=== PATIENT | female | born 1980 | race Caucasian/White ===

== ENCOUNTER 2018-10-01 14:15 | Emergency (ER) | payer MEDICARE, OTHER ==
[~2018-10-01] VITALS: Ht 162.6 cm; Wt 59.0 kg
[~2018-10-01 14:15] MED LIST: ACET325 PO; ALBU90OI INH; AMOCLA875 PO; AMOX500 PO; BENZ100A PO; CEPH500 PO; CLIN150 PO; CODGUAEL PO; Cipro500 MG PO; DICL250; DOXY100 PO; Flagyl250 MG PO; HYDACE5 PO; HYDGUAL120 PO; IBUP200 PO; IBUP800; IBUP800 PO; MULVITMINE; Monodox100 MG PO; NAPR500 PO; NEOPOLHYDS OT; OXYACE5T PO; OXYACE7.5T PO; PENVK250 PO; PENVK500 PO; Prednisone20 MG PO; RXALBOI INH; RXHYDACE PO; RXOXYACE PO; RXPENVK250 PO; SPACER IH; SULTRIDS PO; TRAM50 PO; Ventolin/Prove6.7 GM
[2018-12-19] MEDS ORDERED: Macrobid 100 M100 MG PO (15:53)
[2018-12-19] MEDS ORDERED: Pyridium100 MG PO (15:53)
== END 2018-10-01 14:29 | disposition home or self-care (01) ==
LOC: ER 14:15
DX: N89.8 Other specified noninflammatory disorders of vagina (principal); J44.9 Chronic obstructive pulmonary disease, unspecified; Z86.718 Personal history of other venous thrombosis and embolism; Z88.2 Allergy status to sulfonamides; Z88.1 Allergy status to other antibiotic agents; Z88.8 Allergy status to other drugs, medicaments and biological substances; F17.200 Nicotine dependence, unspecified, uncomplicated
CPT/HCPCS: 99283; A9270-GY

== ENCOUNTER 2018-10-22 02:13 | Emergency (ER) | payer MEDICARE, OTHER ==
[~2018-10-22] VITALS: Ht 162.6 cm; Wt 77.1 kg
[2018-12-19] MEDS ORDERED: Pyridium100 MG PO (15:53)
[2018-12-19] MEDS ORDERED: Macrobid 100 M100 MG PO (15:53)
== END 2018-10-22 05:12 | disposition home or self-care (01) ==
LOC: ER 02:13
DX: A59.9 Trichomoniasis, unspecified (principal); F17.210 Nicotine dependence, cigarettes, uncomplicated; Z88.1 Allergy status to other antibiotic agents; J45.909 Unspecified asthma, uncomplicated
CPT/HCPCS: 99282; A9270-GY

== ENCOUNTER 2019-01-28 17:27 | Inpatient (IN) | payer OTHER ==
[~2019-01-28] VITALS: Ht 160 cm; Wt 59.6 kg
[~2019-01-28 17:27] MED LIST changes: +Macrobid 100 M100 MG PO; +Pyridium100 MG PO
[2019-01-28 18:19] LABS: BASOPHILS ABSOLUTE AUTO 0.03 K/mm3 (0.00-0.23); BASOPHILS PERCENT AUTO 0 % (0-2); EOSINOPHILS ABSOLUTE AUTO 0.56 K/mm3 (0.00-0.68); EOSINOPHILS PERCENT AUTO 5 % (0-6); Hemoglobin 13.5 g/dL (11.5-16.0); IMMATURE GRAN ABSOLUTE AUTO 0.02 K/mm3 (0.00-0.10); IMMATURE GRAN PERCENT AUTO 0 % (0-1); LYMPHOCYTES ABSOLUTE AUTO 4.89 K/mm3 (0.84-5.20); LYMPHOCYTES PERCENT AUTO 41 % (21-46); MONOCYTES ABSOLUTE AUTO 0.99 K/mm3 (0.16-1.47); MONOCYTES PERCENT AUTO 8 % (4-13); Mean Corpuscular HGB 29.1 pg (26.0-34.0); Mean Corpuscular HGB Conc 32.9 g/dL (31.5-36.5); Mean Corpuscular Volume 88 fL (80-100); Mean Platelet Volume 9.4 fL (9.1-12.4); NEUTROPHILS ABSOLUTE AUTO 5.56 K/mm3 (1.96-9.15); NEUTROPHILS PERCENT AUTO 46 % (41-73); Platelet Count 265 K/mm3 (150-400); RDW Standard Deviation 39.2 fL (35.1-46.3); Red Blood Cell Count 4.64 M/mm3 (3.80-5.20); White Blood Cell Count 12.05 K/mm3 (4.00-11.30)
[2019-01-28 18:26] LABS: Base Excess Venous 1.8 mmol/L; Bicarbonate Venous 25.8 mmol/L (24.0-30.0); PCO2 Venous 41.6 mmHg (38-42); PO2 Venous 98.6 mmHg (38-42); pH Blood Venous 7.41 (7.34-7.37)
[2019-01-28 18:38] LABS: Alanine Aminotransfer (ALT/SGP 31 U/L (12-78); Albumin, Blood 3.4 g/dL (3.4-5.0); Albumin/Globulin Ratio 0.7 (0.8-1.8); Alk Phos 89 U/L (50-136); Anion Gap 7 mmol/L (6-16); Aspartate Aminotrans (AST/SGOT 28 U/L (12-37); Bilirubin, Total 0.3 mg/dL (0.1-1.0); Blood Urea Nitrogen 10 mg/dL (8-24); CO2, Blood 27 mmol/L (21-32); Calcium, Blood 8.7 mg/dL (8.5-10.1); Chloride, Blood 105 mmol/L (98-108); Creatinine, Blood 0.67 mg/dL (0.40-1.00); Globulin, Blood 4.6 g/dL (2.2-4.0); Glomerular Filtration Rate >60 (60-); Glucose, Blood 108 mg/dL (70-99); Sodium, Blood 139 mmol/L (136-145)
--- NOTE | 2019-01-28 20:22 | NUR ---
transfer report from Bj ARAYA on 38 year old PT being admitted with COPD, hypoxia. Full code status on oxygen and IV steroids. Await admission
[2019-01-28] MEDS ORDERED: WIXELA 250-501 EACH INH (20:30)
[2019-01-28] MEDS ORDERED: METH40 PO (21:26)
[2019-01-29 00:11] LABS: Adenovirus Not Detected (NOT DETECT); Bordetella pertussis Not Detected (NOT DETECT); Chlamydophila pneumoniae Not Detected (NOT DETECT); Coronavirus 229E Not Detected (NOT DETECT); Coronavirus HKU1 Not Detected (NOT DETECT); Coronavirus NL63 Not Detected (NOT DETECT); Coronavirus OC43 Not Detected (NOT DETECT); Human Metapneumovirus Not Detected (NOT DETECT); Human Rhinovirus/Enterovirus Detected (NOT DETECT); Influenza A Not Detected (NOT DETECT); Influenza A/2009-H1 Not Detected (NOT DETECT); Influenza A/H1 Not Detected (NOT DETECT); Influenza A/H3 Not Detected (NOT DETECT); Influenza B Not Detected (NOT DETECT); Mycoplasma pneumoniae Not Detected (NOT DETECT); Parainfluenza Virus 1 Not Detected (NOT DETECT); Parainfluenza Virus 2 Not Detected (NOT DETECT); Parainfluenza Virus 3 Not Detected (NOT DETECT); Parainfluenza Virus 4 Not Detected (NOT DETECT); Respiratory Syncytial Virus Not Detected (NOT DETECT)
[2019-01-29 05:07] LABS: Hematocrit 37.7 % (33.0-51.0); Hemoglobin 12.5 g/dL (11.5-16.0); Mean Corpuscular HGB 29.3 pg (26.0-34.0); Mean Corpuscular HGB Conc 33.2 g/dL (31.5-36.5); Mean Corpuscular Volume 89 fL (80-100); Mean Platelet Volume 9.7 fL (9.1-12.4); Platelet Count 247 K/mm3 (150-400); RDW Coefficient Variation 12.1 % (11.7-14.2); RDW Standard Deviation 39.4 fL (35.1-46.3); Red Blood Cell Count 4.26 M/mm3 (3.80-5.20); White Blood Cell Count 7.05 K/mm3 (4.00-11.30)
[2019-01-29 05:32] LABS: Alanine Aminotransfer (ALT/SGP 31 U/L (12-78); Albumin, Blood 3.2 g/dL (3.4-5.0); Albumin/Globulin Ratio 0.7 (0.8-1.8); Alk Phos 90 U/L (50-136); Anion Gap 7 mmol/L (6-16); Aspartate Aminotrans (AST/SGOT 20 U/L (12-37); Bilirubin, Total 0.3 mg/dL (0.1-1.0); Blood Urea Nitrogen 10 mg/dL (8-24); Bun/Creatinine Ratio 19.8 (12.0-20.0); CO2, Blood 25 mmol/L (21-32); Calcium, Blood 8.6 mg/dL (8.5-10.1); Chloride, Blood 108 mmol/L (98-108); Creatinine, Blood 0.51 mg/dL (0.40-1.00); Globulin, Blood 4.4 g/dL (2.2-4.0); Glomerular Filtration Rate >60 (60-); Glucose, Blood 226 mg/dL (70-99); Sodium, Blood 140 mmol/L (136-145); Total Protein, Blood 7.6 g/dL (6.4-8.2)
--- NOTE | 2019-01-29 06:10 | NUR ---
PT with COPD smoker admitted with hypoxia and resp distress. Positve resp panel for rhino/enterovirus. Room air sat 84 to 88% when PT removed oxygen. 91 to 93 % on 3 l . PT weepy this AM after rt wrist IV used for steroid. DC rt wristIV due to pain. PT has RT AC IV. 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
--- NOTE | 2019-01-29 18:14 | NUR ---
SPOKE TO DR RICE- PT HAS ASKED SEVERAL TIMES IF SHE WILL GET TO GO HOME TOMORROW. PT NOW AMBULATING W/O O2 OUTSIDE TO SMOKE. DC'D NICOTIENE PATCH. O2 SATS DROPPED INTO THE MID 80'S WHEN PT FELL ASLEEP. PLACED ON 2L O2 VIA NC MAINTAINING SATS IN THE LOW 90'S WHILE SLEEPING. RECIEVED ORDER FOR NIGHT TIME OXIMETRY TO DETERMINE PT HOME O2 NEEDS, IF ANY.
--- NOTE | 2019-01-29 18:39 | NUR ---
SHIFT SUMMARY- PT HAS NIGHT OX ORDERED FOR TONIGHT TO DETERMINE HOME O2 NEEDS. PT SEEMS LIKE SHE WILL BE WANTING TO GO HOME [place]. PT HAS BECOME MORE STABLE T/O THE DAY. SEE PREVIOUS NOTES FOR DETAILS.
--- NOTE | 2019-01-30 06:25 | NUR ---
DR Khoury updated on PT's request for Methadone 60 mg as per her clinic dose after recently completing rehab. declined to order day MD to address. PT completed sleep study, continues on IV steroids. PT continues to smoke intermittantly. No hypoxia noted even after ambulation outside to smoke.
--- NOTE | 2019-01-30 19:16 | NUR ---
PATIENT A/OX4, UP INDEPENDENTLY IN ROOM. VSS, ON RA. LUNGS COARSE WITH WHEEZES THROUGHOUT. GOES OUT TO SMOKE. PATIENT IS HOMELESS, WORKING WITH OUR STAFF TO FIND HOUSING. DENIES ANY PAIN. TAKES METHADONE DAILY. CALM AND COOPERATIVE WITH CARE, CALLS APPROPRIATELY FOR ASSISTANCE.
--- NOTE | 2019-01-31 04:17 | NUR ---
Patient slept intermittently through the night. No c/o pain or SOB. she continues to have a congested cough and is recieving nebulizer treatments per RT.
[2019-01-31] MEDS ORDERED: Prednisone20 MG PO (11:06)
[2019-01-31] MEDS ORDERED: METH10 PO (11:06)
--- NOTE | 2019-01-31 15:40 | NUR ---
DISCHARGE DISCHARGE MEDICATIONS AND INSTRUCTIONS EXPLAINED TO PATIENT. PATIENT STATED UNDERSTANDING. FOLLOW UP WITH PCP SCHEDULED. IV REMOVED WITHOUT DIFFICULTY. BELONGINGS WITH PATIENT. PATIENT AMBULATED TO PRIVATE VEHICLE.
== END 2019-01-31 15:15 | disposition home or self-care (01) | DRG 189 ==
LOC: ER 17:27 → MEDS 19:14 → ENPENDDIS 01-31 11:12 → MEDS 01-31 15:15
PROVIDERS: Emergency Medicine; Physician Assistant; ADMIT Internal Medicine
DX: J96.01 Acute respiratory failure with hypoxia (principal); J45.901 Unspecified asthma with (acute) exacerbation; F17.210 Nicotine dependence, cigarettes, uncomplicated; F11.10 Opioid abuse, uncomplicated; Z59.0 Homelessness; Z86.718 Personal history of other venous thrombosis and embolism
CPT/HCPCS: 0099U; 36415; 71046; 80053; 82803; 85025; 85027; 87070; 87081; 87205; 94640; 94664; 94760; 94762; 96365; 96366; 96375; 99285-25; A9270; J0456; J1650; J2930; J3475; J7030; J7050; J7512

== ENCOUNTER 2019-03-07 13:23 | Emergency (ER) | payer OTHER ==
[~2019-03-07] VITALS: Ht 162.6 cm; Wt 57.6 kg
[~2019-03-07 13:23] MED LIST changes: +METH10 PO; +METH40 PO; +WIXELA 250-501 EACH INH
[2019-03-07 17:34] LABS: Candida species (DNA Probe) Negative (NEGATIVE); G. vaginalis (DNA Probe) Positive (NEGATIVE); T. vaginalis (DNA Probe) Negative (NEGATIVE)
[2019-03-07] MEDS ORDERED: Flagyl500 MG PO (18:08)
== END 2019-03-07 18:11 | disposition home or self-care (01) ==
LOC: ER 13:23
PROVIDERS: Physician Assistant
DX: N76.0 Acute vaginitis (principal); J44.9 Chronic obstructive pulmonary disease, unspecified; F17.200 Nicotine dependence, unspecified, uncomplicated; Z79.899 Other long term (current) drug therapy
CPT/HCPCS: 87480; 87510; 87660; 99283

== ENCOUNTER 2019-05-01 10:57 | Emergency (ER) | payer OTHER ==
[~2019-05-01] VITALS: Ht 162.6 cm; Wt 63.5 kg
[~2019-05-01 10:57] MED LIST changes: +Flagyl500 MG PO
[2019-05-01] MEDS ORDERED: Vibramycin100 MG PO (11:35)
[2019-05-01] MEDS ORDERED: ALBU90OI INH (11:35)
[2019-05-01] MEDS ORDERED: Prednisone20 MG PO (11:35)
== END 2019-05-01 12:56 | disposition home or self-care (01) ==
LOC: ER 10:57
DX: J45.909 Unspecified asthma, uncomplicated (principal); F17.200 Nicotine dependence, unspecified, uncomplicated
CPT/HCPCS: 93005; 93010; 94640; 94644; 99283-25; J7512

== ENCOUNTER 2019-07-09 20:38 | Emergency (ER) | payer OTHER ==
[~2019-07-09] VITALS: Ht 162.6 cm; Wt 63.5 kg
[~2019-07-09 20:38] MED LIST changes: +Vibramycin100 MG PO
[2019-07-09] MEDS ORDERED: CLIN300 PO (23:00)
== END 2019-07-09 23:13 | disposition home or self-care (01) ==
LOC: ER 20:38
DX: K04.7 Periapical abscess without sinus (principal); K02.9 Dental caries, unspecified; J44.9 Chronic obstructive pulmonary disease, unspecified; F17.200 Nicotine dependence, unspecified, uncomplicated; Z79.899 Other long term (current) drug therapy
CPT/HCPCS: 99282; A9270

== ENCOUNTER 2019-08-12 23:47 | Emergency (ER) | payer OTHER ==
[~2019-08-12] VITALS: Ht 162.6 cm; Wt 63.5 kg
[~2019-08-12 23:47] MED LIST changes: +CLIN300 PO
[2019-08-13] MEDS ORDERED: PRED20 PO (01:43)
[2019-08-13] MEDS ORDERED: DOXY100 PO (01:43)
== END 2019-08-13 02:16 | disposition home or self-care (01) ==
LOC: ER 23:47
DX: J44.1 Chronic obstructive pulmonary disease with (acute) exacerbation (principal); F17.200 Nicotine dependence, unspecified, uncomplicated; Z79.899 Other long term (current) drug therapy
CPT/HCPCS: 71046; 94644; 99284-25; J1100

== ENCOUNTER 2020-01-05 07:29 | Emergency (ER) | payer OTHER ==
[~2020-01-05] VITALS: Ht 162.6 cm; Wt 63.5 kg
[~2020-01-05 07:29] MED LIST changes: +PRED20 PO; +Ultram50 MG PO; +Veetids 500500 MG PO
[2020-01-05] MEDS ORDERED: ACYC200 (07:41)
[2020-01-05] MEDS ORDERED: Prednisone20 MG PO (08:46)
== END 2020-01-05 09:00 | disposition home or self-care (01) ==
LOC: ER 07:29
DX: J44.1 Chronic obstructive pulmonary disease with (acute) exacerbation (principal); J45.901 Unspecified asthma with (acute) exacerbation; F17.200 Nicotine dependence, unspecified, uncomplicated; Z79.899 Other long term (current) drug therapy
CPT/HCPCS: 71045; 93005; 93010; 99285-25

== ENCOUNTER 2020-01-15 21:56 | Inpatient (IN) | payer OTHER ==
[~2020-01-15] VITALS: Ht 160 cm; Wt 65.3 kg
[~2020-01-15 21:56] MED LIST changes: +ACYC200 PO
[2020-01-15] MEDS ORDERED: METH5 PO (22:55)
[2020-01-15 23:59] LABS: BASOPHILS ABSOLUTE AUTO 0.03 K/mm3 (0.00-0.23); BASOPHILS PERCENT AUTO 0 % (0-2); EOSINOPHILS ABSOLUTE AUTO 0.01 K/mm3 (0.00-0.68); EOSINOPHILS PERCENT AUTO 0 % (0-6); Hematocrit 42.6 % (33.0-51.0); IMMATURE GRAN ABSOLUTE AUTO 0.03 K/mm3 (0.00-0.10); IMMATURE GRAN PERCENT AUTO 0 % (0-1); LYMPHOCYTES ABSOLUTE AUTO 3.24 K/mm3 (0.84-5.20); LYMPHOCYTES PERCENT AUTO 38 % (21-46); MONOCYTES ABSOLUTE AUTO 0.32 K/mm3 (0.16-1.47); MONOCYTES PERCENT AUTO 4 % (4-13); Mean Corpuscular HGB 28.3 pg (26.0-34.0); Mean Corpuscular HGB Conc 32.9 g/dL (31.5-36.5); Mean Corpuscular Volume 86 fL (80-100); Mean Platelet Volume 9.8 fL (9.1-12.4); NEUTROPHILS ABSOLUTE AUTO 4.98 K/mm3 (1.96-9.15); NEUTROPHILS PERCENT AUTO 58 % (41-73); Platelet Count 267 K/mm3 (150-400); RDW Coefficient Variation 12.2 % (11.7-14.2); RDW Standard Deviation 38.8 fL (35.1-46.3); Red Blood Cell Count 4.94 M/mm3 (3.80-5.20); White Blood Cell Count 8.61 K/mm3 (4.00-11.30)
[2020-01-15 23:59] LABS: Base Excess Venous 3.7 mmol/L; Bicarbonate Venous 27.2 mmol/L (24.0-30.0); PCO2 Venous 44.5 mmHg (38-42); PO2 Venous 146 mmHg (38-42); pH Blood Venous 7.41 (7.34-7.37)
[2020-01-16 00:13] LABS: Adenovirus Not Detected (NOT DETECT); Bordetella pertussis Not Detected (NOT DETECT); Chlamydophila pneumoniae Not Detected (NOT DETECT); Coronavirus 229E Not Detected (NOT DETECT); Coronavirus HKU1 Not Detected (NOT DETECT); Coronavirus NL63 Not Detected (NOT DETECT); Coronavirus OC43 Not Detected (NOT DETECT); Human Metapneumovirus Not Detected (NOT DETECT); Human Rhinovirus/Enterovirus Detected (NOT DETECT); Influenza A/2009-H1 Not Detected (NOT DETECT); Influenza A/H1 Not Detected (NOT DETECT); Influenza A/H3 Not Detected (NOT DETECT); Influenza B Not Detected (NOT DETECT); Mycoplasma pneumoniae Not Detected (NOT DETECT); Parainfluenza Virus 1 Not Detected (NOT DETECT); Parainfluenza Virus 2 Not Detected (NOT DETECT); Parainfluenza Virus 3 Not Detected (NOT DETECT); Parainfluenza Virus 4 Not Detected (NOT DETECT); Respiratory Syncytial Virus Not Detected (NOT DETECT); SARS-Cov-2 (COVID-19), BioFire Not Detected (NOT DETECT)
[2020-01-16 00:16] LABS: Alanine Aminotransfer (ALT/SGP 25 U/L (12-78); Albumin, Blood 3.6 g/dL (3.4-5.0); Albumin/Globulin Ratio 0.8 (0.8-1.8); Alk Phos 117 U/L (50-136); Anion Gap 3 mmol/L (6-16); Aspartate Aminotrans (AST/SGOT 17 U/L (12-37); Bilirubin, Total 0.4 mg/dL (0.1-1.0); Blood Urea Nitrogen 10 mg/dL (8-24); Bun/Creatinine Ratio 17.4 (12.0-20.0); CO2, Blood 28 mmol/L (21-32); Calcium, Blood 9.4 mg/dL (8.5-10.1); Chloride, Blood 107 mmol/L (98-108); Creatinine, Blood 0.58 mg/dL (0.40-1.00); Globulin, Blood 4.5 g/dL (2.2-4.0); Glomerular Filtration Rate >60 (60-); Glucose, Blood 106 mg/dL (70-99); Potassium, Blood 4.5 mmol/L (3.5-5.5); Sodium, Blood 138 mmol/L (136-145); Total Protein, Blood 8.1 g/dL (6.4-8.2)
[2020-01-18] MEDS ORDERED: ALBU90OI INH (12:15)
[2020-01-18] MEDS ORDERED: TUMS500 MG PO (12:15)
[2020-01-18] MEDS ORDERED: FLUTICASONE-SA1 EAC2 INH (12:16)
[2020-01-18] MEDS ORDERED: PANT20 PO (12:17)
[2020-01-18] MEDS ORDERED: PRED20 PO (12:20)
== END 2020-01-18 14:53 | disposition home or self-care (01) | DRG 189 ==
LOC: ER 21:56 → MEDS 22:33
PROVIDERS: Emergency Medicine; ADMIT Family Medicine
DX: J96.01 Acute respiratory failure with hypoxia (principal); J44.1 Chronic obstructive pulmonary disease with (acute) exacerbation; F17.210 Nicotine dependence, cigarettes, uncomplicated; Z20.828 Contact with and (suspected) exposure to other viral communicable diseases; B34.8 Other viral infections of unspecified site; Z79.52 Long term (current) use of systemic steroids
CPT/HCPCS: 0202U; 36415; 71045; 80053; 82803; 84703; 85025; 93005; 93010; 94640; 94644; 94760; 94761; 96374; 98960; 99285-25; C9113; J2930

== ENCOUNTER 2020-02-17 14:26 | Emergency (ER) | payer OTHER ==
[~2020-02-17] VITALS: Ht 162.6 cm; Wt 63.5 kg
[~2020-02-17 14:26] MED LIST changes: +FLUTICASONE-SA1 EAC2 INH; +METH5 PO; +PANT20 PO; +TUMS500 MG PO
[2020-02-18 07:34] LABS: Influenza A, PCR Negative (NEGATIVE); Influenza B, PCR Negative (NEGATIVE); Resp Syncytial Virus, PCR Negative (NEGATIVE); SARS-Cov-2 (COVID-19) PCR, MMC Negative (NEGATIVE)
== END 2020-02-17 16:21 | disposition home or self-care (01) ==
LOC: ER 14:26
PROVIDERS: Physician Assistant
DX: R52 Pain, unspecified (principal); F17.210 Nicotine dependence, cigarettes, uncomplicated; J44.9 Chronic obstructive pulmonary disease, unspecified; R21 Rash and other nonspecific skin eruption; R61 Generalized hyperhidrosis; Z20.828 Contact with and (suspected) exposure to other viral communicable diseases; Z79.891 Long term (current) use of opiate analgesic
CPT/HCPCS: 0241U; 99283

== ENCOUNTER 2020-05-17 22:33 | Inpatient (IN) | payer OTHER ==
[~2020-05-17] VITALS: Ht 162.6 cm; Wt 59.0 kg
[2020-05-18 00:07] LABS: BASOPHILS ABSOLUTE AUTO 0.04 K/mm3 (0.00-0.23); BASOPHILS PERCENT AUTO 0 % (0-2); EOSINOPHILS PERCENT AUTO 3 % (0-6); Hematocrit 38.1 % (33.0-51.0); IMMATURE GRAN ABSOLUTE AUTO 0.04 K/mm3 (0.00-0.10); IMMATURE GRAN PERCENT AUTO 0 % (0-1); LYMPHOCYTES ABSOLUTE AUTO 4.76 K/mm3 (0.84-5.20); LYMPHOCYTES PERCENT AUTO 36 % (21-46); MONOCYTES ABSOLUTE AUTO 1.05 K/mm3 (0.16-1.47); MONOCYTES PERCENT AUTO 8 % (4-13); Mean Corpuscular HGB 27.8 pg (26.0-34.0); Mean Corpuscular HGB Conc 34.1 g/dL (31.5-36.5); Mean Corpuscular Volume 82 fL (80-100); Mean Platelet Volume 9.2 fL (9.1-12.4); NEUTROPHILS ABSOLUTE AUTO 7.08 K/mm3 (1.96-9.15); NEUTROPHILS PERCENT AUTO 53 % (41-73); Platelet Count 318 K/mm3 (150-400); RDW Coefficient Variation 12.4 % (11.7-14.2); RDW Standard Deviation 37.1 fL (35.1-46.3); Red Blood Cell Count 4.67 M/mm3 (3.80-5.20); White Blood Cell Count 13.37 K/mm3 (4.00-11.30)
[2020-05-18 00:29] LABS: Alanine Aminotransfer (ALT/SGP 21 U/L (12-78); Albumin, Blood 2.9 g/dL (3.4-5.0); Albumin/Globulin Ratio 0.6 (0.8-1.8); Alk Phos 114 U/L (50-136); Anion Gap 5 mmol/L (6-16); Aspartate Aminotrans (AST/SGOT 15 U/L (12-37); Bilirubin, Total 0.2 mg/dL (0.1-1.0); Blood Urea Nitrogen 15 mg/dL (8-24); Bun/Creatinine Ratio 14.9 (12.0-20.0); CO2, Blood 28 mmol/L (21-32); Calcium, Blood 8.6 mg/dL (8.5-10.1); Chloride, Blood 105 mmol/L (98-108); Creatinine, Blood 1.01 mg/dL (0.40-1.00); Globulin, Blood 4.8 g/dL (2.2-4.0); Glomerular Filtration Rate >60 (60-); Glucose, Blood 106 mg/dL (70-99); Potassium, Blood 3.5 mmol/L (3.5-5.5); Sodium, Blood 138 mmol/L (136-145); Total Protein, Blood 7.7 g/dL (6.4-8.2)
--- NOTE | 2020-05-18 04:51 | NUR ---
PATIENT CAME ONTO UNIT AT 0400 TODAY 05/18/20. PATIENT CAME ONTO UNIT ALERT AND ORIENTED X4 THOUGH WAS FATIGUED. UPON ARRIVAL SHE WAS COMPLAINING OF IV TENDERNESS. THIS NURSE AND CHARGE NURSE WILY CHECKED IV SITE THOUGH PATIENT REFUSED. PATIENT WITH HX OF DIFFICULT IV START. CALL PLACED TO ICU ANALYTICS INTERN FOR POSSIBLE POWERGLIDE ATTEMPT. DURING SECOND POWERGLIDE ATTEMPT, PATIENT HOLLERED OUT IN PAIN, STATING THAT SHE WOULD LIKE TO LEAVE AMA. PATIENT EDUCATED ON RISKS OF LEAVING WITHOUT TREATMENT. PATIENT VERBALIZED AWARENESS OF RISKS SUCH WORSENING INFECTIONS/SEPSIS AND POSSIBLE . HOSPITALIST AND NURSING OPERATIONS RESEARCH ENGINEER NOTIFIED AT APPROX. 0430. IV'S DISCONTINUED PRIOR TO LEAVING AMA AND WERE BOTH WNL. PHOTO'S TAKEN OF MULTIPLE ABCESSES AND IN HER CHART. SHE ALSO SIGNED ALLOWING THIS NURSE TO TAKE PHOTOS.
== END 2020-05-18 04:30 | disposition left against medical advice (07) | DRG 558 ==
LOC: ER 22:33 → SURS 05-18 02:34
PROVIDERS: Physician Assistant; ADMIT Internal Medicine
DX: M60.011 Infective myositis, right shoulder (principal); R65.10 Systemic inflammatory response syndrome (SIRS) of non-infectious origin without acute organ dysfunction; L02.511 Cutaneous abscess of right hand; F11.10 Opioid abuse, uncomplicated; J44.9 Chronic obstructive pulmonary disease, unspecified; F17.210 Nicotine dependence, cigarettes, uncomplicated; Z86.718 Personal history of other venous thrombosis and embolism; Z79.899 Other long term (current) drug therapy; Z98.890 Other specified postprocedural states; Z98.51 Tubal ligation status
CPT/HCPCS: 36415; 73201; 80053; 83605; 85025; 87040; 93005; 93010; 96365; 96376; 99284-25; J2543; J3370; J7030; Q9967

== ENCOUNTER 2020-10-13 17:53 | Emergency (ER) | payer OTHER ==
[~2020-10-13] VITALS: Ht 162.6 cm; Wt 63.5 kg
== END 2020-10-13 18:32 | disposition home or self-care (01) ==
LOC: ER 17:53
DX: R05 Cough (principal); R06.02 Shortness of breath; F17.210 Nicotine dependence, cigarettes, uncomplicated; Z20.822 Contact with and (suspected) exposure to COVID-19
CPT/HCPCS: 99283

== ENCOUNTER 2021-02-09 20:10 | Inpatient (IN) | payer OTHER ==
[~2021-02-09] VITALS: Ht 167.6 cm; Wt 69.7 kg
[2021-02-09 21:09] LABS: BASOPHILS ABSOLUTE AUTO 0.04 K/mm3 (0.00-0.23); BASOPHILS PERCENT AUTO 0 % (0-2); EOSINOPHILS ABSOLUTE AUTO 0.28 K/mm3 (0.00-0.68); EOSINOPHILS PERCENT AUTO 3 % (0-6); Hematocrit 42.9 % (33.0-51.0); Hemoglobin 13.8 g/dL (11.5-16.0); IMMATURE GRAN ABSOLUTE AUTO 0.02 K/mm3 (0.00-0.10); IMMATURE GRAN PERCENT AUTO 0 % (0-1); LYMPHOCYTES PERCENT AUTO 23 % (21-46); MONOCYTES ABSOLUTE AUTO 0.76 K/mm3 (0.16-1.47); MONOCYTES PERCENT AUTO 8 % (4-13); Mean Corpuscular HGB 27.7 pg (26.0-34.0); Mean Corpuscular HGB Conc 32.2 g/dL (31.5-36.5); Mean Corpuscular Volume 86 fL (80-100); Mean Platelet Volume 9.4 fL (9.1-12.4); NEUTROPHILS ABSOLUTE AUTO 6.59 K/mm3 (1.96-9.15); NEUTROPHILS PERCENT AUTO 66 % (41-73); Platelet Count 310 K/mm3 (150-400); RDW Coefficient Variation 14.1 % (11.7-14.2); RDW Standard Deviation 44.6 fL (35.1-46.3); Red Blood Cell Count 4.98 M/mm3 (3.80-5.20); White Blood Cell Count 9.99 K/mm3 (4.00-11.30)
[2021-02-09 21:31] LABS: Alanine Aminotransfer (ALT/SGP 49 U/L (12-78); Albumin, Blood 3.4 g/dL (3.4-5.0); Albumin/Globulin Ratio 0.7 (0.8-1.8); Alk Phos 121 U/L (50-136); Anion Gap 7 mmol/L (6-16); Aspartate Aminotrans (AST/SGOT 45 U/L (12-37); Bilirubin, Total 0.2 mg/dL (0.1-1.0); Blood Urea Nitrogen 11 mg/dL (8-24); Bun/Creatinine Ratio 15.3 (12.0-20.0); CO2, Blood 28 mmol/L (21-32); Calcium, Blood 8.7 mg/dL (8.5-10.1); Chloride, Blood 104 mmol/L (98-108); Creatinine, Blood 0.72 mg/dL (0.40-1.00); Globulin, Blood 5.1 g/dL (2.2-4.0); Glomerular Filtration Rate >60 (60-); Glucose, Blood 105 mg/dL (70-99); Potassium, Blood 4.4 mmol/L (3.5-5.5); Sodium, Blood 139 mmol/L (136-145); Total Protein, Blood 8.5 g/dL (6.4-8.2); Troponin I <0.015 ng/mL (0.000-0.040)
[2021-02-09 21:46] LABS: Influenza A, PCR NEGATIVE (NEGATIVE); Influenza B, PCR NEGATIVE (NEGATIVE); Resp Syncytial Virus, PCR NEGATIVE (NEGATIVE); SARS-Cov-2 (COVID-19) PCR, MMC NEGATIVE (NEGATIVE)
[2021-02-10 00:38] LABS: Base Excess Venous 1.6 mmol/L; PCO2 Venous 53.4 mmHg (38-42); PO2 Venous 94.2 mmHg (38-42); pH Blood Venous 7.32 (7.34-7.37)
[2021-02-10 01:09] LABS: Base Excess Venous 2 mmol/L; Bicarbonate Venous 25.8 mmol/L (24.0-30.0); PCO2 Venous 44.3 mmHg (38-42); PO2 Venous 163 mmHg (38-42); pH Blood Venous 7.39 (7.34-7.37)
--- NOTE | 2021-02-10 02:02 | NUR ---
CARE ASSUMPTION PT ARRIVING TO THE UNIT AND TRANSFERED HERSELF FROM ER BED TO PCU BED. VS WNL AND STABLE. TELE SHOWING SR IN THE 90'S. PT PLACED ON BIPAP 14/8 W 40% BY RT. PT CURRENTLY SLEEPING BUT EASILY AROUSABLE.
[2021-02-10 04:13] LABS: Alanine Aminotransfer (ALT/SGP 49 U/L (12-78); Albumin, Blood 3.1 g/dL (3.4-5.0); Albumin/Globulin Ratio 0.7 (0.8-1.8); Alk Phos 106 U/L (50-136); Anion Gap 9 mmol/L (6-16); Aspartate Aminotrans (AST/SGOT 43 U/L (12-37); Bilirubin, Total 0.1 mg/dL (0.1-1.0); Blood Urea Nitrogen 11 mg/dL (8-24); Bun/Creatinine Ratio 16.2 (12.0-20.0); CO2, Blood 24 mmol/L (21-32); Calcium, Blood 8.5 mg/dL (8.5-10.1); Chloride, Blood 106 mmol/L (98-108); Creatinine, Blood 0.68 mg/dL (0.40-1.00); Globulin, Blood 4.7 g/dL (2.2-4.0); Glomerular Filtration Rate >60 (60-); Glucose, Blood 242 mg/dL (70-99); Potassium, Blood 4.1 mmol/L (3.5-5.5); Sodium, Blood 139 mmol/L (136-145); Total Protein, Blood 7.8 g/dL (6.4-8.2)
[2021-02-10 04:14] LABS: BASOPHILS ABSOLUTE AUTO 0.01 K/mm3 (0.00-0.23); BASOPHILS PERCENT AUTO 0 % (0-2); EOSINOPHILS ABSOLUTE AUTO 0.01 K/mm3 (0.00-0.68); EOSINOPHILS PERCENT AUTO 0 % (0-6); Hematocrit 38.1 % (33.0-51.0); Hemoglobin 12.3 g/dL (11.5-16.0); IMMATURE GRAN ABSOLUTE AUTO 0.01 K/mm3 (0.00-0.10); IMMATURE GRAN PERCENT AUTO 0 % (0-1); LYMPHOCYTES ABSOLUTE AUTO 0.97 K/mm3 (0.84-5.20); LYMPHOCYTES PERCENT AUTO 16 % (21-46); MONOCYTES ABSOLUTE AUTO 0.06 K/mm3 (0.16-1.47); MONOCYTES PERCENT AUTO 1 % (4-13); Mean Corpuscular HGB 28.1 pg (26.0-34.0); Mean Corpuscular HGB Conc 32.3 g/dL (31.5-36.5); Mean Corpuscular Volume 87 fL (80-100); Mean Platelet Volume 9.5 fL (9.1-12.4); NEUTROPHILS ABSOLUTE AUTO 4.94 K/mm3 (1.96-9.15); NEUTROPHILS PERCENT AUTO 82 % (41-73); Platelet Count 257 K/mm3 (150-400); RDW Coefficient Variation 14.1 % (11.7-14.2); RDW Standard Deviation 45.1 fL (35.1-46.3); Red Blood Cell Count 4.38 M/mm3 (3.80-5.20)
--- NOTE | 2021-02-10 05:31 | NUR ---
TANK SHOP SUPERVISOR SUMMARY PT IS AXO X4 THIS SHIFT. PT HAS BEEN VERY TIRED THIS SHIFT SLEEPING SINCE HER ADMISSION WAS DONE ON THE FLOOR BUT HAS BEEN VERY EASILY AROUSABLE. BP WNL AND STABLE. PT HAS BEEN ON BIPAP THIS WHOLE SHIFT 14/8 W 40% FIO2. RR 14-18 THIS SHIFT. O2 SATS >92% ON BIPAP. WILL REPORT TO ONCOMING RN.
[2021-02-10 08:50] LABS: Base Excess Venous -1.6 mmol/L; Bicarbonate Venous 22.8 mmol/L (24.0-30.0); PCO2 Venous 40.4 mmHg (38-42); PO2 Venous 42.5 mmHg (38-42); pH Blood Venous 7.38 (7.34-7.37)
[2021-02-10 09:18] LABS: U Amphetamine Screen DETECTED; U Barbituate Screen Not Detected; U Benzodiazapine Screen DETECTED; U Cocaine Screen Not Detected; U Methadone Screen DETECTED; U Methamphetamine Screen DETECTED
[2021-02-10 09:19] LABS: U Buprenorphine Screen Not Detected; U Cannabinoids Screen Not Detected; U Opiates Screen DETECTED; U Oxycodone Screen Not Detected; U Phencyclidine Screen Not Detected; U Propoxyphene Screen Not Detected
[2021-02-10 11:20] LABS: Adenovirus Not Detected (NOT DETECT); Bordetella pertussis Not Detected (NOT DETECT); Chlamydophila pneumoniae Not Detected (NOT DETECT); Coronavirus 229E Not Detected (NOT DETECT); Coronavirus HKU1 Not Detected (NOT DETECT); Coronavirus NL63 Not Detected (NOT DETECT); Coronavirus OC43 Not Detected (NOT DETECT); Human Metapneumovirus Not Detected (NOT DETECT); Human Rhinovirus/Enterovirus Not Detected (NOT DETECT); Influenza A/2009-H1 Not Detected (NOT DETECT); Influenza A/H1 Not Detected (NOT DETECT); Influenza A/H3 Not Detected (NOT DETECT); Influenza B Not Detected (NOT DETECT); Mycoplasma pneumoniae Not Detected (NOT DETECT); Parainfluenza Virus 1 Not Detected (NOT DETECT); Parainfluenza Virus 2 Not Detected (NOT DETECT); Parainfluenza Virus 3 Not Detected (NOT DETECT); Parainfluenza Virus 4 Not Detected (NOT DETECT); Respiratory Syncytial Virus Not Detected (NOT DETECT); SARS-Cov-2 (COVID-19), BioFire Not Detected (NOT DETECT)
--- NOTE | 2021-02-10 17:57 | NUR ---
SHIFT SUMMARY PT A&Ox4; ANXIOUS AND IRRITABLE. PT ATTEMPTING TO LEAVE AMA DUE TO VISITOR RESTRICTIONS. PT EDUCATED ON AMA RISK AND BENEFITS; PT DECIDED TO STAY AND RESUME TREATMENT. PT SOB WITH EXERTION, SPO2 >88% ON 4-6L O2 VIA NC, OCCASIONALLY DROPS TO 86-87% WITH COUGHING OR EXERTION RECOVERS QUICKLY. LS WHEEZING T/O. PT HR 90-100'S; 120-130 WITH ACTIVITY. OTHER VSS. PT REPORTS GENERALIZED PAIN THIS AM; NOTIFIED DR HAMLIN, NEW ORDER FOR PT HOME MEDICINE METHADONE, PT REPORTS RELEIFE. PT REPORTS INCREASED ANXIETY; NOTIFIED DR HAMLIN, NEW ORDERS ENTERED. PT DENIES DIZZINESS AND [place]; APPEARS TO HAVE GOOD APPETITE. OTHER VSS. NO OTHER ACUTE CHANGES NOTED. WILL CONTINUE TO MONITOR UNTIL REPORT GIVEN TO ONCOMING RN.
--- NOTE | 2021-02-10 18:02 | NUR ---
pt seen today to assit with keeping her from signing out AMA. pt pale sweating sturggling with maintaing sats. Sat with pt and theraputic discussion of care. Will update phsycian for additional medications for polypharmacy withdarwls. pt high risk for ventilation. may need precidex. will follow up with her physician and daughter and will slowly help pt understand her pulmonary disease needs.
--- NOTE | 2021-02-10 18:49 | NUR ---
PATIENT ATTEMPTED TO LEAVE AMA AFTER ITEMS A VISITOR LEFT WERE CONFISCATED; SECURITY AT BEDSIDE. PT SIGNED AMA FORMS; NOTIIFED DR HAMLIN, SECURITY ESCORTING THE PATIEINT OUT, PT MADE IT APPROX 200 FT WITHOUT OXYGEN, PT BACK TO ROOM DECIDING THAT SHE WOULD LIKE TO STAY; PT PLACE ON 10L HIGH FLOW AND RT NOTIFIED NEED FOR BREATHING TREATMENT. ATTTEMPTED TO CALL DR HAMLIN. WILL CONTINUE TO MONITOR.
--- NOTE | 2021-02-10 20:19 | NUR ---
CARE ASSUMPTION PT IS AXO X4 BUT VERBALIZES THAT SHE IS IN SEVERE HEROIN WITHDRAWL. PT GIVEN SCD'S TO HELP W THE RESTLESS LEGS. VSS ALTHOUGH HER HR BECOMES ELEVATED WHEN SHE GETS UPSET ABOUT BEING IN THE HOSPITAL WHILE IN WITHDRAWL. PT PLACED ON BIPAP BY RT AND IS LYING IN BED AT THIS TIME.
--- NOTE | 2021-02-10 22:00 | NUR ---
UPDATE THIS RN NOTIFIED DR. DACOSTA REGARDING PT'S INCREASED WITHDRAWL SYMPTOMS. PROVIDER OK'D GIVING THE PT'S HYDROXIZINE NOW EVEN THOUGH IT HAS NOT BEEN 6 HOURS SINCE THE LAST DOSE.
--- NOTE | 2021-02-11 05:38 | NUR ---
FINISHED STOCK INSPECTOR SUMMARY PT IS AXO X4 THIS SHIFT. PT HAS STRUGGLED W SEVERE OPIATE WITHDRAWL SYMPTOMS THIS SHIFT W C/O RESTLESS LEGS, AGITATION, INABILITY TO SLEEP, AND OVERALL ANXIETY. PT GIVEN PRN ATARAX W LITTLE EFFECT. PT REFUSED TO WEAR BIPAP FOR MOST OF THE SHIFT UNTIL APPROX 0500 WHEN SHE AWOKE IN A PANIC REPORTING INCREASED SOB SO SHE WAS PLACED ON BIPAP 14/8 W 40% FIO2 WHICH BROUGHT INSTANT RELIEF. BP WNL AND STABLE THIS SHIFT. TELE SHOWING SR IN THE 90'S THIS SHIFT BUT ST HIGH 120 WHEN SHE IS AWAKE AND STRUGGLING W HER WITHDRAWL SYMPTOMS. WILL REPORT TO ONCOMING RN.
[2021-02-11 07:06] LABS: Glucose, Blood 137 mg/dL (70-99)
[2021-02-11 09:51] LABS: Base Excess Venous 2.4 mmol/L; Bicarbonate Venous 26.1 mmol/L (24.0-30.0); PCO2 Venous 45.4 mmHg (38-42); PO2 Venous 87.3 mmHg (38-42); pH Blood Venous 7.39 (7.34-7.37)
--- NOTE | 2021-02-11 11:43 | NUR ---
PT TO CT FOR STAT PE STUDY ON NONREBREATHER 15L; BACK IN ROOM IN BIPAP. WILL CONTINUE TO MONITOR.
--- NOTE | 2021-02-11 12:52 | NUR ---
evelin therputic visit and assessment with patient. pt pale and guarded and anxious. pt has complex symptoms. Review of medications with phsycian. goal is to avoid benzodiazapines. Suggest third line adjunct medication of clonadine.
--- NOTE | 2021-02-11 17:11 | NUR ---
SHIFT SUMMARY PT RESPONDING TO VERBAL STIMULI FOR MAJORITY OF SHIFT. ORIENTEDx4. PT ANXIOUS BUT COOPERAITVE WITH CARE. PT RESTING IN BED, UP SBA TO BSC. PT REPORTS PAIN THIS AM T/O; MEDICATED WITH SCHEDULE METHADONE, PT REPORTS IMPROVEMENT. PT SOB AT REST ON NC STARTED ON 4L O2 TIRATED TO 10L T/O SHIFT, SPENT MAJORITY OF SHIFT ON BIPAP 14/8 40%, LS WHEEZING AND COARSE T/O. PT DENIES CHEST PAIN, NAUSEA AND DIZZINESS. PT RECEIVING IV ANTIBIOTICS AND STEROIDS. STARTED CLONIDINE PATCH FOR ANXIETY, TO LEFT UPPER/AR SHOULDER. VSS. NO OTHER ACUTE CHANGES NOTED. WILL CONTINUE TO MONITOR UNTIL REPORT GIVEN TO ONCOMING RN.
--- NOTE | 2021-02-11 18:03 | NUR ---
PT REPORTS ANXIETY ATTACK, INCREASE RESP RATE AND EFFORT; UNABLE TO TAKE PO MEDICATION, NOTIFIED DR WEATHERS, NEW ORDER FOR ATIVAN IV 2MG NOW. ADMINISTERED PT RESP RATE 24 ON BIPAP 12/10 AT 40%; WILL CONTINUE TO MONITOR
--- NOTE | 2021-02-12 06:07 | NUR ---
SHIFT SUMMARY - NO ACUTE CHANGES THROUGHOUT SHIFT. PT SLEPT THROUGHOUT MOST OF THE NIGHT. BIPAP OFF FOR SHORT BREAKS - 10L O2 HIGH FLOW PLACED ON - SATS WNL THROUGHOUT THE NIGHT. PT CONTINUES WITH AUDIBLE WHEEZING. PT UP TO BSC WITH SBA. PT NPO SINCE MIDNIGHT FOR PROCEDURE TODAY. CALL LIGHT WITHIN REACH. BED IN LOW POSITION.
[2021-02-12 06:36] LABS: BASOPHILS ABSOLUTE AUTO 0.02 K/mm3 (0.00-0.23); BASOPHILS PERCENT AUTO 0 % (0-2); EOSINOPHILS PERCENT AUTO 0 % (0-6); Hematocrit 36.2 % (33.0-51.0); Hemoglobin 11.2 g/dL (11.5-16.0); IMMATURE GRAN ABSOLUTE AUTO 0.09 K/mm3 (0.00-0.10); IMMATURE GRAN PERCENT AUTO 1 % (0-1); LYMPHOCYTES ABSOLUTE AUTO 1.67 K/mm3 (0.84-5.20); LYMPHOCYTES PERCENT AUTO 14 % (21-46); MONOCYTES ABSOLUTE AUTO 0.47 K/mm3 (0.16-1.47); MONOCYTES PERCENT AUTO 4 % (4-13); Mean Corpuscular HGB 27.7 pg (26.0-34.0); Mean Corpuscular HGB Conc 30.9 g/dL (31.5-36.5); Mean Corpuscular Volume 89 fL (80-100); Mean Platelet Volume 10.1 fL (9.1-12.4); NEUTROPHILS ABSOLUTE AUTO 9.79 K/mm3 (1.96-9.15); NEUTROPHILS PERCENT AUTO 81 % (41-73); Platelet Count 245 K/mm3 (150-400); RDW Coefficient Variation 14.8 % (11.7-14.2); RDW Standard Deviation 48.5 fL (35.1-46.3); Red Blood Cell Count 4.05 M/mm3 (3.80-5.20); White Blood Cell Count 12.04 K/mm3 (4.00-11.30)
--- NOTE | 2021-02-12 07:40 | NUR ---
Pt was experiencing a very harsh, barking cough, accompanied by anxiety while wearing nasal cannula. She requested the BIpap at approx 0715. This was put on, and she relaxed, lay back on the pillows (HOB elevated at 25 degrees) closed her eyes and appears to be resting comfortably. Stated that she feels better. spo2 93-94% on bipap settings of 14/8 and 30 % fio2, with RR 14-18/min at this time.
[2021-02-12 07:45] LABS: Anion Gap 6 mmol/L (6-16); Blood Urea Nitrogen 22 mg/dL (8-24); Bun/Creatinine Ratio 32.2 (12.0-20.0); CO2, Blood 27 mmol/L (21-32); Calcium, Blood 8.6 mg/dL (8.5-10.1); Chloride, Blood 107 mmol/L (98-108); Creatinine, Blood 0.68 mg/dL (0.40-1.00); Glomerular Filtration Rate >60 (60-); Glucose, Blood 119 mg/dL (70-99); Potassium, Blood 4.5 mmol/L (3.5-5.5); Sodium, Blood 140 mmol/L (136-145)
--- NOTE | 2021-02-12 08:55 | NUR ---
Dr. Oates here to see the patient. Pt was taken off of bipap, placed on nasal cannula 3 l/min; spo2 maintaining at 95%.
--- NOTE | 2021-02-12 09:39 | NUR ---
Pt is asking for her breakfast. Tray provided after Idris Lopez and Иван completed rounding.
--- NOTE | 2021-02-12 10:47 | NUR ---
Dr. Vgea here to see the patient.
--- NOTE | 2021-02-12 10:48 | NUR ---
Interventional Technologist states no need at this time for ANDREW.
--- NOTE | 2021-02-12 15:06 | NUR ---
Pt awakens for meals, and briefly for care or when she needs to use the bathroom. Eating with good appetite. Has not needed bipap except for about an hour this morning. Otherwise has been on nasal cannula, and sleeping in between the aforementioned activities. Wheezing is still noted to auscultation and audibly without. She is able to tolerate lying in bed with HOB at 25 degrees. Belly breathing noted, but otherwise no use of accessory muscles noted at rest. No bowel movement since admission. This was mentioned to Dr. Oates this morning, and bowel care was requested.
--- NOTE | 2021-02-12 17:35 | NUR ---
Pt up independently to the bathroom, did not need assistance. She states that she is feeling much better, and tolerated the activity with some dyspnea but no anxiety and no panic attack. She ate all of her dinner and after returning from the bathroom is drinking a cup of coffee while sitting up in bed.
[2021-02-13 05:57] LABS: BASOPHILS ABSOLUTE AUTO 0.01 K/mm3 (0.00-0.23); BASOPHILS PERCENT AUTO 0 % (0-2); EOSINOPHILS PERCENT AUTO 0 % (0-6); Hematocrit 35.4 % (33.0-51.0); Hemoglobin 11.3 g/dL (11.5-16.0); IMMATURE GRAN ABSOLUTE AUTO 0.05 K/mm3 (0.00-0.10); IMMATURE GRAN PERCENT AUTO 1 % (0-1); LYMPHOCYTES ABSOLUTE AUTO 2.09 K/mm3 (0.84-5.20); LYMPHOCYTES PERCENT AUTO 31 % (21-46); MONOCYTES ABSOLUTE AUTO 0.31 K/mm3 (0.16-1.47); MONOCYTES PERCENT AUTO 5 % (4-13); Mean Corpuscular HGB Conc 31.9 g/dL (31.5-36.5); Mean Corpuscular Volume 88 fL (80-100); Mean Platelet Volume 9.5 fL (9.1-12.4); NEUTROPHILS ABSOLUTE AUTO 4.22 K/mm3 (1.96-9.15); NEUTROPHILS PERCENT AUTO 63 % (41-73); Platelet Count 245 K/mm3 (150-400); RDW Coefficient Variation 14.3 % (11.7-14.2); RDW Standard Deviation 46.4 fL (35.1-46.3); Red Blood Cell Count 4.04 M/mm3 (3.80-5.20); White Blood Cell Count 6.68 K/mm3 (4.00-11.30)
--- NOTE | 2021-02-13 07:19 | NUR ---
PT IS DROWSY AND AGITATED THROUGHOUT SHIFT. DISCUSSED IMPORTANCE OF DEEP BREATHING WITH PATIENT. ALSO DISCUSSED BREATHING COPING MECHANISM FOR ANXIETY. WEANED o2 DOWN TO RA, O2 SAT 88-93%
--- NOTE | 2021-02-13 09:54 | NUR ---
CARE ASSUMPTION PT WAKES EASILY TO VERBAL STIMULI. A&O X4. VSS. MONITOR SHOWING SR, HR 70's. SPO2 > 92% ON 1L NC. PT CALM THIS AM & COOPERATIVE W/ CARE. PHYSICAL THERAPY IN TO WORK W/ PT W/ REPORT OF PT TOLERATING PHYSICAL ACTIVITY WELL BUT O2 DESATING TO 80's W/ AMBULATION WITHIN THE ROOM. PT O2 RECOVER W/ REST & DEEP BREATHING. PT NOW SLEEPING IN RM.
[2021-02-13] MEDS ORDERED: BENZ100A PO (11:23)
[2021-02-13] MEDS ORDERED: ANORO ELLIPTA1 EACH INH (11:23)
[2021-02-13] MEDS ORDERED: Atarax10 MG PO (11:24)
[2021-02-13] MEDS ORDERED: IPRAT-ALBUT 0.5-3 ML INH (11:25)
[2021-02-13] MEDS ORDERED: Prednisone10 MG PO (11:26)
--- NOTE | 2021-02-13 12:00 | NUR ---
DISCHARGE HOME PT A&O X4. VSS. MONITOR SHOWING SR, HR 70's PRIOR TO TELE REMOVAL. SPO2 > 92% ON 3L NC. PT DISCHARGING HOME W/ O2. PT TAKEN OUT BY 2 PCT's IN W.C. W/ BELONGINGS @ APPROX 1150. POWER GLIDE REMOVED PRIOR TO DISCHARGE. DISCHARGE INSTRUCTIONS REVIEWED W/ PT.
== END 2021-02-13 12:03 | disposition home or self-care (01) | DRG 189 ==
LOC: ER 20:10 → PCU 23:04
PROVIDERS: Emergency Medicine; Family Medicine; Nurse Practitioner Acute Care; ADMIT Family Medicine
PROC: 5A09457 Assistance with Respiratory Ventilation, 24-96 Consecutive Hours, Continuous Positive Airway Pressure (ICD-10-PCS; principal; 2021-02-09)
DX: J96.22 Acute and chronic respiratory failure with hypercapnia (principal); J44.1 Chronic obstructive pulmonary disease with (acute) exacerbation; J44.0 Chronic obstructive pulmonary disease with (acute) lower respiratory infection; R65.10 Systemic inflammatory response syndrome (SIRS) of non-infectious origin without acute organ dysfunction; F11.10 Opioid abuse, uncomplicated; Z20.822 Contact with and (suspected) exposure to COVID-19; F17.210 Nicotine dependence, cigarettes, uncomplicated; R73.03 Prediabetes; F41.9 Anxiety disorder, unspecified; F15.10 Other stimulant abuse, uncomplicated; Z86.718 Personal history of other venous thrombosis and embolism; Z79.51 Long term (current) use of inhaled steroids; Z86.16 Personal history of COVID-19; Z98.51 Tubal ligation status; Z98.890 Other specified postprocedural states
CPT/HCPCS: 0202U; 0241U; 36415; 71045; 71260; 80048; 80053; 82803; 82947; 83036; 83605; 83735; 84145; 84484; 85025; 87040; 93005; 93010; 93306; 94640; 94660; 94664; 94761; 94762; 96365; 96367; 96375; 97112; 97161; 97165; 97530; 99285-25; A9270; J0456; J0696; J1650; J2060; J2930; J7030; J7050; Q9967

== ENCOUNTER 2021-05-23 23:15 | Emergency (ER) | payer OTHER ==
[~2021-05-23 23:15] MED LIST changes: +ANORO ELLIPTA1 EACH INH; +Atarax10 MG PO; +IPRAT-ALBUT 0.5-3 ML INH; +Prednisone10 MG PO
[2021-05-24] MEDS ORDERED: Flagyl500 MG PO (14:21)
== END 2021-05-24 00:01 | disposition left against medical advice (07) ==
LOC: ER 23:15
DX: Z53.21 Procedure and treatment not carried out due to patient leaving prior to being seen by health care provider (principal)

== ENCOUNTER 2021-05-24 14:07 | Emergency (ER) | payer OTHER ==
[~2021-05-24] VITALS: Ht 162.6 cm; Wt 65.8 kg
[2021-05-24] MEDS ORDERED: Flagyl500 MG PO (14:21)
== END 2021-05-24 14:23 | disposition home or self-care (01) ==
LOC: ER 14:07
DX: N89.8 Other specified noninflammatory disorders of vagina (principal); J44.9 Chronic obstructive pulmonary disease, unspecified; F17.200 Nicotine dependence, unspecified, uncomplicated; Z79.899 Other long term (current) drug therapy
CPT/HCPCS: 99283

== ENCOUNTER 2021-06-26 17:54 | Emergency (ER) | payer OTHER ==
[~2021-06-26] VITALS: Ht 162.6 cm; Wt 63.5 kg
[2021-06-26] MEDS ORDERED: AZIT250 PO (22:02)
[2021-06-26] MEDS ORDERED: PRED20 PO (22:02)
== END 2021-06-26 22:06 | disposition home or self-care (01) ==
LOC: ER 17:54
DX: J44.1 Chronic obstructive pulmonary disease with (acute) exacerbation (principal); F17.200 Nicotine dependence, unspecified, uncomplicated; Z79.899 Other long term (current) drug therapy
CPT/HCPCS: 36415; 71046; 93005; 93010; 94640; 94664; 99283-25; A9270; J7512

== ENCOUNTER 2023-03-23 09:34 | Emergency (ER) | payer OTHER ==
[~2023-03-23] VITALS: Ht 162.6 cm; Wt 65.8 kg
[~2023-03-23 09:34] MED LIST changes: +AZIT250 PO; +POLYTRIM EYE DR10 M1 BOTHEYES
[2023-03-23 10:51] LABS: BASOPHILS ABSOLUTE AUTO 0.04 K/mm3 (0.00-0.23); BASOPHILS PERCENT AUTO 1 % (0-2); EOSINOPHILS ABSOLUTE AUTO 0.18 K/mm3 (0.00-0.68); EOSINOPHILS PERCENT AUTO 3 % (0-6); Hematocrit 40.9 % (33.0-51.0); Hemoglobin 13.7 g/dL (11.5-16.0); IMMATURE GRAN PERCENT AUTO 0 % (0-1); LYMPHOCYTES ABSOLUTE AUTO 4.21 K/mm3 (0.84-5.20); LYMPHOCYTES PERCENT AUTO 60 % (21-46); MONOCYTES ABSOLUTE AUTO 0.44 K/mm3 (0.16-1.47); MONOCYTES PERCENT AUTO 6 % (4-13); Mean Corpuscular HGB 30.2 pg (26.0-34.0); Mean Corpuscular HGB Conc 33.5 g/dL (31.5-36.5); Mean Corpuscular Volume 90 fL (80-100); Mean Platelet Volume 9.3 fL (9.1-12.4); NEUTROPHILS PERCENT AUTO 31 % (41-73); Platelet Count 230 K/mm3 (150-400); RDW Coefficient Variation 12.4 % (11.7-14.2); RDW Standard Deviation 41.3 fL (35.1-46.3); Red Blood Cell Count 4.53 M/mm3 (3.80-5.20); White Blood Cell Count 7.07 K/mm3 (4.00-11.30)
[2023-03-23 11:24] LABS: Albumin, Blood 3.6 g/dL (3.4-5.0); Bilirubin, Total 0.3 mg/dL (0.1-1.0); Bun/Creatinine Ratio 18.5 (12.0-20.0); Calcium, Blood 8.6 mg/dL (8.5-10.1); Creatinine, Blood 0.76 mg/dL (0.40-1.00); Globulin, Blood 3.7 g/dL (2.2-4.0); Potassium, Blood 3.8 mmol/L (3.5-5.5); Total Protein, Blood 7.3 g/dL (6.4-8.2)
[2023-03-23 12:48] LABS: SARS-Cov-2 (COVID-19) PCR, MMC NEGATIVE (NEGATIVE)
[2023-03-23 12:50] LABS: Influenza A Negative (NEGATIVE); Influenza B Negative (NEGATIVE)
[2023-03-23] MEDS ORDERED: ALBU90OI INH (12:53)
[2023-03-23 13:15] VITALS: BP 108/68
== END 2023-03-23 13:32 | disposition home or self-care (01) ==
LOC: ER 09:34
PROVIDERS: Physician Assistant
DX: J44.1 Chronic obstructive pulmonary disease with (acute) exacerbation (principal); J45.901 Unspecified asthma with (acute) exacerbation; F17.200 Nicotine dependence, unspecified, uncomplicated; Z79.51 Long term (current) use of inhaled steroids
CPT/HCPCS: 71046; 80053; 85025; 87804; 87807; 94640; 94644; 94664; 99285-25; U0002

== ENCOUNTER 2023-12-27 16:09 | Emergency (ER) | payer OTHER ==
[~2023-12-27] VITALS: Ht 162.6 cm; Wt 72.6 kg
[~2023-12-27 16:09] MED LIST changes: +Acetaminophen650 M1 PO; +Cleocin HCl150 MG PO; +IBUP400 PO; +LACT PO
[2023-12-27 16:30] VITALS: BP 123/89
[2023-12-27] MEDS ORDERED: PredniSONE 20 MG Tab PO ONE (16:35)
== END 2023-12-27 19:32 | disposition left against medical advice (07) ==
LOC: ER 16:09
DX: R06.02 Shortness of breath (principal); Z53.21 Procedure and treatment not carried out due to patient leaving prior to being seen by health care provider
CPT/HCPCS: 71046; 99281-25

== ENCOUNTER 2024-02-09 17:31 | Emergency (ER) | payer OTHER ==
[~2024-02-09] VITALS: Ht 165.1 cm; Wt 68.0 kg
[2024-02-09] MEDS ORDERED: Lactated Ringer's 1,000 ML IV ONE ×2 (18:10→19:00)
[2024-02-09] MEDS ORDERED: Ondansetron HCl 2 MG / ML 2ML Vial IV ONE (18:10)
[2024-02-09] MEDS ORDERED: Ketorolac Tromethamine 30mg Vial IV ONE (18:10)
[2024-02-09 18:14] LABS: BASOPHILS ABSOLUTE AUTO 0.03 K/mm3 (0.00-0.23); BASOPHILS PERCENT AUTO 0 % (0-2); EOSINOPHILS ABSOLUTE AUTO 0.01 K/mm3 (0.00-0.68); EOSINOPHILS PERCENT AUTO 0 % (0-6); Hematocrit 39.9 % (33.0-51.0); Hemoglobin 13.5 g/dL (11.5-16.0); IMMATURE GRAN ABSOLUTE AUTO 0.07 K/mm3 (0.00-0.10); IMMATURE GRAN PERCENT AUTO 1 % (0-1); LYMPHOCYTES ABSOLUTE AUTO 1.15 K/mm3 (0.84-5.20); LYMPHOCYTES PERCENT AUTO 11 % (21-46); MONOCYTES ABSOLUTE AUTO 0.02 K/mm3 (0.16-1.47); MONOCYTES PERCENT AUTO 0 % (4-13); Mean Corpuscular HGB 30.3 pg (26.0-34.0); Mean Corpuscular HGB Conc 33.8 g/dL (31.5-36.5); Mean Corpuscular Volume 90 fL (80-100); Mean Platelet Volume 8.8 fL (9.1-12.4); NEUTROPHILS ABSOLUTE AUTO 9.46 K/mm3 (1.96-9.15); NEUTROPHILS PERCENT AUTO 88 % (41-73); Platelet Count 174 K/mm3 (150-400); RDW Coefficient Variation 12.7 % (11.7-14.2); RDW Standard Deviation 41.1 fL (35.1-46.3); Red Blood Cell Count 4.46 M/mm3 (3.80-5.20); White Blood Cell Count 10.74 K/mm3 (4.00-11.30)
[2024-02-09 18:52] LABS: Albumin, Blood 3.2 g/dL (3.4-5.0); Albumin/Globulin Ratio 0.9 (0.8-1.8); Bun/Creatinine Ratio 14.8 (12.0-20.0); Calcium, Blood 8.7 mg/dL (8.5-10.1); Creatinine, Blood 0.88 mg/dL (0.40-1.00); Globulin, Blood 3.5 g/dL (2.2-4.0); Potassium, Blood 3.7 mmol/L (3.5-5.5); Total Protein, Blood 6.7 g/dL (6.4-8.2)
[2024-02-09 19:00] LABS: CORONAVIRUS COVID-19 AG Negative (NEGATIVE); INFLUENZA A AG Negative (NEGATIVE); INFLUENZA B AG Negative (NEGATIVE)
[2024-02-09 19:40] VITALS: BP 113/75
== END 2024-02-09 19:48 | disposition home or self-care (01) ==
LOC: ER 17:31
PROVIDERS: Emergency Medicine
DX: B34.9 Viral infection, unspecified (principal); J44.89 Other specified chronic obstructive pulmonary disease; Z79.899 Other long term (current) drug therapy
CPT/HCPCS: 80053; 83690; 85025; 87428-QW; 93005; 93010; 96374; 96375; 99284-25; J1885; J2405; J7120

== ENCOUNTER 2024-05-05 22:27 | Emergency (ER) | payer OTHER ==
[~2024-05-05] VITALS: Ht 162.6 cm; Wt 72.6 kg
[2024-05-05 22:54] VITALS: BP 141/94
[2024-05-05] MEDS ORDERED: MethylPREDNISolone Sod Succ 125 MG Vial IM ONE (23:00)
[2024-05-05] MEDS ORDERED: Ipratropium/Albuterol SulF 2.5-0.5MG/3 ML Amp INH ONE (23:00)
[2024-05-06 00:01] LABS: Influenza A, PCR NEGATIVE (NEGATIVE); Influenza B, PCR NEGATIVE (NEGATIVE); Resp Syncytial Virus, PCR NEGATIVE (NEGATIVE); SARS-Cov-2 (COVID-19) PCR, MMC NEGATIVE (NEGATIVE)
== END 2024-05-06 00:30 | disposition home or self-care (01) ==
LOC: ER 22:27
PROVIDERS: Student in an Organized Health Care Education/Training Program
DX: J44.1 Chronic obstructive pulmonary disease with (acute) exacerbation (principal); F17.210 Nicotine dependence, cigarettes, uncomplicated
CPT/HCPCS: 0241U; 93005; 93010; 94640; 94664; 96372; 99284-25; J2919

== ENCOUNTER 2024-12-22 01:03 | Emergency (ER) | payer OTHER ==
[~2024-12-22] VITALS: Ht 162.6 cm; Wt 77.1 kg
[2024-12-22] MEDS ORDERED: NS 1,000 ML IV SCH (01:30)
[2024-12-22 01:38] LABS: Source, Urine Clean Catch
[2024-12-22 01:56] VITALS: BP 137/93
[2024-12-22 02:01] LABS: Glucose Qualitative, Urine Neg (Neg); Ketones, Urine Neg (Neg); Leukocyte Esterase, Urine 2+ (Neg); Protein, Urine 3+ (Neg); Specific Gravity, Urine 1.020 (1.003-1.022); Urobilinogen, Urine 4+ (Normal)
[2024-12-22 02:15] LABS: Hematocrit 41.0 % (33.0-51.0); Hemoglobin 13.6 g/dL (11.5-16.0); Mean Corpuscular HGB Conc 33.2 g/dL (31.5-36.5); Mean Corpuscular Volume 83 fL (80-100); NRBC ABSOLUTE 0.00 K/mm3 (0.00-0.02); NRBC Auto 0.0 /100 WBC (0.0-0.2); Platelet Count 132 K/mm3 (150-400); RDW Coefficient Variation 12.8 % (11.7-14.2); RDW Standard Deviation 38.7 fL (35.1-46.3)
[2024-12-22 02:19] LABS: Bilirubin, Urine 3+ (Neg); Color, Urine Amber (P-Yellow)
[2024-12-22 02:23] LABS: Red Blood Cells, Urine 0-2 /hpf (0-2)
[2024-12-22 02:32] LABS: Alanine Aminotransfer (ALT/SGP 269.0 U/L (12-78); Albumin, Blood 3.0 g/dL (3.4-5.0); Albumin/Globulin Ratio 0.8 (0.8-1.8); Anion Gap 9.0 mmol/L (3-11); Aspartate Aminotrans (AST/SGOT 226.0 U/L (12-37); Bilirubin, Total 4.2 mg/dL (0.1-1.0); Blood Urea Nitrogen 13.0 mg/dL (8-24); CO2, Blood 27.0 mmol/L (21-32); Calcium, Blood 8.6 mg/dL (8.5-10.1); Chloride, Blood 102.0 mmol/L (98-108); Creatinine, Blood 1.01 mg/dL (0.40-1.00); Globulin, Blood 4.0 g/dL (2.2-4.0); Glucose, Blood 120.0 mg/dL (70-99); Potassium, Blood 3.6 mmol/L (3.5-5.5); Sodium, Blood 134.0 mmol/L (136-145); Total Protein, Blood 7.0 g/dL (6.4-8.2)
[2024-12-22 02:35] LABS: Influenza A, PCR NEGATIVE (NEGATIVE); Influenza B, PCR NEGATIVE (NEGATIVE); Resp Syncytial Virus, PCR NEGATIVE (NEGATIVE); SARS-Cov-2 (COVID-19) PCR, MMC NEGATIVE (NEGATIVE)
[2024-12-22 02:36] LABS: BAND PERCENT MAN 2 % (0-8); BASOPHILS ABSOLUTE MAN 0.03 K/mm3 (0.00-0.23); BASOPHILS PERCENT MAN 1 % (0-2); EOSINOPHILS ABSOLUTE MAN 0.39 K/mm3 (0.00-0.68); EOSINOPHILS PERCENT MAN 10 % (0-6); LYMPHOCYTES % ATYPICAL MANUAL 1 % (0-0); LYMPHOCYTES ABSOLUTE MAN 1.26 K/mm3 (0.84-5.20); LYMPHOCYTES PERCENT MAN 31 % (21-46); METAMYELOCYTE ABSOLUTE MAN 0.03 K/mm3 (0.00-0.00); METAMYELOCYTE PERCENT MAN 1 % (0-0); MONOCYTES ABSOLUTE MAN 0.19 K/mm3 (0.16-1.47); MONOCYTES PERCENT MAN 5 % (4-13); NEUTROPHILS ABSOLUTE MAN 2.01 K/mm3 (1.96-9.15); SEG NEUTROPHILS PERCENT MAN 49 % (41-73)
[2024-12-22] MEDS ORDERED: CefTRIAXone Sodium 1,000 MG in NS 50 ML IV ONE (02:45)
[2024-12-22] MEDS ORDERED: CEPH500 PO (02:49)
== END 2024-12-22 03:36 | disposition home or self-care (01) ==
LOC: ER 01:03
PROVIDERS: Emergency Medicine
DX: N39.0 Urinary tract infection, site not specified (principal); E86.0 Dehydration; J44.9 Chronic obstructive pulmonary disease, unspecified; F17.210 Nicotine dependence, cigarettes, uncomplicated; Z59.89 Other problems related to housing and economic circumstances; Z79.899 Other long term (current) drug therapy
CPT/HCPCS: 80053; 81001; 81025; 85025; 87040; 87077; 87086; 87186; 87637; 96365; 99283-25; A9270; J0696; J7030